=== PATIENT | female | born 1990 | race Caucasian/White ===

== ENCOUNTER 2024-12-31 08:00 | Outpatient (RCR) | payer MEDICAID, SELFPAY | END 2024-12-31 23:59 | LOC: BHIOP 08:00 | PROVIDERS: PCP Student in an Organized Health Care Education/Training Program; Referring Provider Internal Medicine; Visit Provider Internal Medicine | DX: F33.2 Major depressive disorder, recurrent severe without psychotic features (principal) | CPT/HCPCS: H2020 ==

== ENCOUNTER 2025-01-01 07:19 | Outpatient (RCR) | payer MEDICAID, SELFPAY ==
--- NOTE | 2025-01-03 08:28 | BH.PSY.EVA_ITS ---
Intake Vital Signs 12/25/24 10:32 01/03/25 08:28 Height 1.68 m 1.68 m Weight: 128.82 kg BMI 45.8 BP 155/107 H Blood Pressure Location Lt radial Position Sitting Respiration 16 Pulse 106 H Pulse Source Monitor Intake Visit Reasons: ADHD, MDD, HOWARD Allergies No Known Allergies Allergy (Verified 12/25/24 10:40) Medications ?Medication ?Instructions ?Recorded ?Confirmed ?Type sertraline 50 mg tablet 50 mg PO QDAY #30 tabs 12/2512/25/24 Rx PFSH () Medical History Eustachian tube disorder Thyroid disease Hormone deficiency Emotional problems Anemia Family History Other Anxiety Asthma Blood clot in vein Breast cancer Colon cancer Diabetes Hypertension Myocardial infarction Parkinson disease Psychiatric care Thyroid disorder Social History Smoking Status: Never smoker alcohol intake: never substance use type: does not use what type of physical activity do you participate in: none HPI () History of Present Illness History provided by: patient Chief complaint: Anxiety, meltdowns HPI: Annemarie is a 34 y/o F who presented to [facility] IOP program for further evaluation and treatment of ADHD, MDD, HOWARD. Okay so far Busy week, electric disconnected. Came in on , was on crisis. Frustrated, tired.Referred at the end of november after crisit call. My ADLs are not great. Struggling to work. Fired on neglet of, food service coordinator customer insight analyst, not set hours, likes waking up in AM, Hard time getting and starting tasks, work load was cut in half already d/t overhwlemed, really denial disability. Crying, meldowns, shutdowns, cries, sensory overload, fired from job Mood is described as []. []. Anhedonia: Does enjoy things but just doesn't get to do them because not acceptable or not enough energy Appetite: Good, maybe too good, likes sett things Sleep: Past few days waking up at 330am, before this week sleep is usually okay Energy: Varies depending what she has to do, sometimes very poor Concentration: I don't know, focused on trying to survive Guilt: Relying on sister, can't work, sister helpful financially but not as emotionally SI: Not lately, not for 1 month HI: No AH: No VH: No Lyndsey: Years ago got into rol playing online up to 26 hours straight, Anxiety: Pretty bad, finances, I guess i have some kind of social anxiety, kind of enjoy people and person facing jobs but going to the store makes her anxious Panic attacks: Used to get them a lot, spirals of anxiety end up in crying, major crying, before june used to call sister, started using crisi numbers, sometimes out of no where, particularly overwhelmed, OCD: Likes things on an even number, double checking door, bothers her but doesn't impact Eating d/o hx: Nothign restrictive, eating, not binging PTSD: No Dad left when 11 years old, didn't come back into her life, visitation was sparse then none existent, mom lost house, mom had to get a job, was very structured before that, homeschooled, then wasn't, did have anxiety when she always anxious, i don't really know before 2016 lived in [place], moved here in 2016, struggling with mood around that time, Current psychiatric medications: Zoloft 50 mg, recently started 12/25/2024 by her psychiatric np as she had stopped taking her medication previously. Was hard to keep up on taking medicines, off of the other 3 for a couple months, not taking consistently Zoloft already helping, hasn't taken synthroid in one month, last in august took it Side effect concerns: [] Past psychiatric treatment Hx: -Psychiatrist: Follows with [facility] psychiatry, for around 1 year, IOP virtually last year [facility], was helpful -Therapist: Mick cavazos [facility] -Psychiatric hospitalizations: None -Suicide attempts: [] -NSSI: [] -Medication trials: Fluoxetine, BuSpar, Wellbutrin Substance use Hx: -Alcohol: [] -Drugs: [] -Rehab: [] -Tobacco use: [] Family Hx: -Mental illness: [] -Suicide attempts or completions: [] -Substance Use: [] -General medical conditions: [] Psychosocial: -Born/raised: [] -Childhood: [] -Parents: [] -Siblings: [] -Current living situation and location: [] -Marital status: [] -Children: [] -If female, on control or plans to get ?: [] -Support system: [] -Highest level of education: [] -Employment hx/Income: [] -Spiritism affiliation: [] - hx: [] -Access to guns: [] -Legal problems: [] -Hx of abuse: [] Medical ROS: General: Denies fever HENT: Denies headache EYES: Denies acute changes in vision Resp: denies shortness of breath Cardiac: Denies chest pain GI: denies changes in bowel, denies nausea/vomiting : Denies changes in urination MSK: Denies weakness Neuro: Denies any numbness/tingling Heme: Denies any bleeding or bruising Skin: Denies rashes Psychiatric: As above Developmental History Developmental History: ANNEMARIE is the [ ORDER]. The pt was born and raised in [ ]. Education level completed [ ]. Pt describes his/her childhood as [ ]. Visit Details Comments: Spent a total of [ ] minutes on the date of the service which included [ ].
--- NOTE | 2025-01-03 08:28 | PCM.BH.PSYEV ---
Intake Vital Signs 12/25/24 10:32 01/03/25 08:28 01/03/25 09:43 Height 1.68 m 1.68 m 1.7 m Weight: 128.82 kg 124.738 kg BMI 45.8 BP 155/107 H 143/97 H Blood Pressure Location Lt radial Position Sitting Respiration 16 Pulse 106 H 83 Pulse Source Monitor Intake Visit Reasons: ADHD, MDD, HOWARD Allergies No Known Allergies Allergy (Verified 01/03/25 09:34) Medications ?Medication ?Instructions ?Recorded ?Confirmed ?Type sertraline 50 mg tablet 50 mg PO QDAY #30 tabs 12/25/24 01/03/25 Rx atomoxetine 40 mg capsule 40 mg PO DAILY 01/03/25 01/03/25 History Held on 01/03/25. Instructions: pt states she is going to start taking it again soon levothyroxine 137 mcg tablet 137 mcg PO DAILY 01/03/25 01/03/25 History (Euthyrox) Held on 01/03/25. Instructions: pt states she is going to start taking again soon [facility] () Medical History Eustachian tube disorder Thyroid disease Hormone deficiency Emotional problems Anemia Family History Other Anxiety Asthma Blood clot in vein Breast cancer Colon cancer Diabetes Hypertension Myocardial infarction Parkinson disease Psychiatric care Thyroid disorder Social History Smoking Status: Never smoker alcohol intake: never substance use type: does not use what type of physical activity do you participate in: none HPI () History of Present Illness History provided by: patient Chief complaint: Anxiety, meltdowns HPI: Annemarie is a 34 y/o F who presented to [facility] IOP program for further evaluation and treatment of ADHD, MDD, HOWARD. She reports that she has had a a lot of stress this week and that she is frustrated and tired, she reports that her electric was disconnected and she has been dealing with that and has been not doing well with her ADLs and not taking care of herself. This week she was fired for neglect of duty and reports it was a very accommodating job with flexible daytime hours but she still was not able to do this due to difficulty with energy, concentration, anxiety, mood. Patient with crying and meltdowns. She reports she has a hard time starting tasks and staying focused on tasks when they do occur. Today patient feels she is doing slightly better but still struggling. She is also just denied disability Anhedonia: Does still think she enjoys but with the heat and with her low energy she often is unable to do these things Appetite: Good appetite Sleep: Had been sleeping okay but has been waking up at 3:30 AM over the past several days since making it harder during the day Energy: Often times very poor Concentration: Sounds as though there is poor concentration, she reports she just focuses on trying to survive so it is difficult to assess Guilt: She feels guilt that she is relying on her sister financially because she lost her job and she cannot work with all of her current problems SI: Last had thoughts of suicide 1 month ago HI: No AH: No VH: No Lyndsey: Denies any symptoms consistent with manic episode Anxiety: She reports that she is anxious over finances and also gets anxious going places with other people, she enjoys people and work that involves interacting with people but just going to the store or an area with an unstructured interaction gives her significant anxiety Panic attacks: Reports she will get an spirals of anxiety and ended up crying and hyperventilating and sometimes come out of nowhere but other times happen when she is feeling particularly overwhelmed, she is to get those very frequently, somewhat less so now OCD: Likes things on an even number and will double check the door and notes that this bothers her but doesn't impact her functioning Eating d/o hx: Denies any history of restricting, sometimes will overeat PTSD: No Current psychiatric medications: Zoloft 50 mg, recently started 12/25/2024 by her clinical psychology professor as she had stopped taking her medication previously. Was hard to keep up on taking medicines and was off of all 3 for several months and even when she was on them she was not taking them consistently. Does note Zoloft already seems to be helping Side effect concerns: No Past psychiatric treatment Hx: -Psychiatrist: Follows with [facility] psychiatry. IOP virtually last year [facility], was helpful, previously 1 session w/ one other psychiatric provider before [place] but felt dismissed so she did not come back -Therapist: Mick at [facility], first therapy session yesterday, was Yuni before that but Yuni has a role change so she is unable to follow with her but did like Mick -Psychiatric hospitalizations: None -Suicide attempts: In November [place] paused [place] the [place] but does not necessarily think she would have actually stayed there for train was coming, no other attempts -NSSI: Sometimes with severe panic attacks would hit her head or bite herself -Medication trials: Fluoxetine, BuSpar, Wellbutrin, atomoxetine, adderall Substance use Hx: -Alcohol: No -Drugs: no -Rehab: no -Tobacco use: No Family Hx: -Mental illness: Depression and anxiety run on mom's side with her aunt and also her sister -Suicide attempts or completions: Sister might have attempted suicide but she is unsure -Substance Use: No -General medical conditions: Hypothyoridism on mom's side, HTN, heart issues, DMII, mother from colon cancer after 12-year ibrahim, grandmother breast cancer Psychosocial: -Born/raised: Born and raised in [place], moved to [place] in 11th grade, mom was born and raised there so after her sister got they moved but came back here in 2016 when sister got for the second time. She has a niece that 16 started driving and nephew who is 8 years old -Childhood: Before 11 years old she said she thinks it was fairly normal although there was a lot of fighting between her parents, her dad left when she was 11 years old and did not come back into her life. Visitation was sparse and then nonexistent, mom lost her house and she had to get a job (was previously on mom) and patient had been homeschooled but then had to go to school so she had significant operating of her life -Parents: Dad not around, mom from cancer 2-3 years ago, battled colon cancer for 12 years and she was her weigher operator until she passed -Siblings: One sister who lives in [place], works at [employer] in the lab -Current living situation and location: Lives in house that is since been turned into apartment, she lives on the middle level -Marital status: Has a boyfriend of 7 years who lives in [place], has been steady but slow. 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 Before that was unemployed as she was her mom's weigher operator -Lutheran affiliation: Scientologist, also alittle witsylvestery and has tear cards and crystals - hx: No -Access to guns: No -Legal problems: No -Hx of abuse: No Medical ROS: General: Denies fever HENT: Denies headache EYES: Denies acute changes in vision Resp: SOB related to her anxiety, had on Tuesday but resolved now, Cardiac: Denies chest pain GI: denies changes in bowel, denies nausea/vomiting : Denies changes in urination MSK: Denies weakness Neuro: Denies any numbness/tingling Heme: Denies any bleeding or bruising Skin: Denies rashes Psychiatric: As above Developmental History Developmental History: Exam () Mental Status Exam- Psych () Appearance casually dressed and no apparent distress Attitude cooperative and other (Slow to engage but progressively more so throughout the interview) Activity/Motor Behavior fidgeting Speech regular rate and regular volume Mood other (Little bit anhedonic) Affect restricted Thought Process linear and logical Thought Content no delusions and no hallucinations Suicidal Ideation none Homicidal Ideation none Attention intact Concentration intact Sensorium/Orientation awake and alert Memory/Cognition intact Insight fair Judgement fair Assessment & Plan () Assessment & Plan (1) Major depressive disorder: Problem Details: Crying spells, poor concentration, easily overwhelmed frequently with low energy was experiencing fleeting SI but none today Qualifiers: Major depression recurrence: recurrent Active/Remission status: currently active Major depression episode severity: moderate Qualified Code(s): F33.1 - Major depressive disorder, recurrent, moderate Plan: Patient is already beginning to feel better on Zoloft, started on 50 mg a couple weeks ago and reports she is attempting to be compliant with this, given she is already finding this helpful we will continue at current dose and assess for further adjustment needs moving forward (2) ADHD: Problem Details: By history Qualifiers: Attention deficit-hyperactivity disorder type: predominantly inattentive Qualified Code(s): F90.0 - Attention-deficit hyperactivity disorder, predominantly inattentive type Plan: Has not been taking her atomoxetine, we will work on patient's depression and anxiety, will need to assess the improvement in her concentration and if she needs further management of ADHD (3) Hypothyroidism: Plan: Patient reports being noncompliant with her Synthroid, suspect this is contributing to her mood and depression, advise she restart this as she still has medications and follow-up with her PCP, reports she has an appointment later this month. Plan The patient will begin IOP in Behavioral Health at [facility]. The program's structure, support, education, and therapy aim to prevent deterioration of symptoms and avoid the need for PHP or inpatient hospitalization. I have a reasonable expectation that the patient will make practical improvements in their presenting symptoms and will be discharged to a lower level of care. Medications: On Hold atomoxetine Hold Comment: pt states she is going to start taking it again soon 40 mg PO DAILY levothyroxine Hold Comment: pt states she is going to start taking again soon 137 mcg PO DAILY Visit Details Comments: Spent a total of [ ] minutes on the date of the service which included [ ]. Charges/Coding Behavior Health Behavior Health Psychiatric Evaluation: 76362 Psych Diag Exam w/ Medical Services
--- NOTE | 2025-01-03 09:14 | BH.PSY.EVA_ITS ---
Initial Treatment Plan Patient Information Visit Information: ADMISSION DATE: EXPECTED LOS: 4-6 weeks
--- NOTE | 2025-01-03 09:14 | BH.DR.ITP ---
Initial Treatment Plan Patient Information Visit Information: ADMISSION DATE: EXPECTED LOS: 6-8 weeks Diagnoses:: MDD Problems/Symptoms Problem #1:: MDD Symptom:: Crying spells, poor concentration, easily overwhelmed frequently with low energy was experiencing fleeting SI but none today
--- NOTE | 2025-01-03 09:15 | BH.NA ---
Physical Data Vital Signs Pulse Rate: 83 Blood Pressure: 143/97 Height/Weight Height: 1.7 m Weight:: 124.738 kg Weight in Pounds: 275.0 lbs Current Medication Compliance Medication Compliance Do you take your medication as prescribed?: Yes Nutritional History Appetite Nutritional Instructions: Describe your appetite:: Good Additional nutritional information:: Client states her weight and appetite are stable. Client states in the past year she has probably gained about 15lbs. Functional Assessment Sleep Pattern Describe any problems with sleeping: Client sleeps 6-8 hours per night. Sensory/Communication Assess Vision Problems Do you have any vision problems?: Glasses Communication Problems Do you have difficulty understanding what people are saying?: No Medical Problems/History Hematologic Conditions Hematologic: Anemia Metabolic Conditions Metabolic: Hypothyroidism and Other (See comments) Family History Family History Other Anxiety Asthma Blood clot in vein Breast cancer Colon cancer Diabetes Hypertension Myocardial infarction Parkinson disease Psychiatric care Thyroid disorder Additional History Additional comments:: ADHD Surgical History Surgical History Have you had any surgeries? If so, list type and date:: Yes (ear tubes as a child) Substance Abuse Substance Abuse Please describe substance abuse in the last 30 days:: Client denies alcohol, tobacco or substance use. Client occasionally has caffeine, either pop or coffee but usually not daily. Mental Status Summary Mental Status Significant Findings/Observations on Appearance and Mood:: Client is alert and oriented x 4. Client is casually groomed. Client is cooperative with assessment. Client makes good eye contact. Client's voice has normal rate and volume. Client is tearful at times during assessment. Client makes logical associations and has normal processing. Client denies delusions/hallucinations. Client denies SI at this time. Suicide Assessment Suicidal Ideation Are you currently or have you been suicidal in the past?: Yes Suicidal Intentional Rating Scale (SIRS): Suicidal thoughts (past) Physician Notification Past Psychiatric History MH Treatment Hx Past Psychiatric Medications:: Buspar, Wellbutrin, Adderall (possibly made anxiety worse), Prozac Age of first mental health symptoms: Client was diagnosed with ADHD as a child but states her mom pulled her out of school and homeschooled with online school to try to help her. Client states she started taking medication for ADHD around age 29. Describe (age, circumstance, etc) any past hospitalizations: None. Current providers for mental health treatment (counselor, psychiatrist, pillowcase cleaner, etc.): Mick for counseling at [facility], Quyen Steele [employer] at [facility] Fall Risk Assessment Age Age: Less than 60 Mental Status Mental Status: Willing & able to ask for assistance when needed Physical Status Physical Status: No problems Impairments Impairments: None Elimination Elimination: Continent AND independent Gait or Balance Gait or Balance: Walks independently Hx of Falls History of falls in the past 6 months: No known history Medications/Substances Psychotropics:: Antidepressants Medications/substances used within the past 24 hours or ordered to administer: 1-2 of the medications/substances listed above Total Score Total Points:: 1 RN Summary of Impressions Impressions Recommendations Impressions: Psychiatric Issues: Major depressive disorder, recurrent severe without psychosis. Generalized Anxiety Disorder. ADHD. Level of Care How do the client's current symptoms and functional deficits support need for this level of care?: Client was referred to IOP by her outpatient psychiatrist due to mental health impacting her ability to function. 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 Client states her mother was her primary support, emotionally and financially, and states she has been struggling to function and take care of herself since her mother . Client states she was recently fired from a job at the end of December and states this is the first time she has ever been fired. Client reports a decrease in abilities to carry out ADLS, decreased energy, isolating herself and intense emotional episodes of crying, rocking back and forth and shaking. Client is tearful when she talks about how hard it has been to take care of herself since her mother's passing. Client denies SI at this time. IOP will promote gains and prevent further decompensation while providing social support and skills training.
[2025-01-03 09:43] VITALS: BP 143/97; PULSE 83
--- NOTE | 2025-01-03 10:10 | BH.SGPN.GN ---
Behaviors/Verbalizations/Mental Status: []Eye contact is good. Motor activity is appropriate. Appearance is casual. Speech is Appropriate. Mood is anxious. Affect is congruent. Thoughts are linear and logical. No evidence of psychosis. Client Response/Progress/Benefit: [] Pt receptive to session AEB listening attentively to others and taking notes. Pt attentive and contributed throughout psychoeducation on the cognitive triangle and maintenance cycles. Pt engaged during group discussion reviewing the impact of daily activities and behaviors in either reinforcing unhealthy maintenance cycles and depression or assisting in reducing symptoms (?down? vs ?up? activities). Pt participated during interactive discussion in which pt identified their own common up activities (personal hygiene, body movement, be social) and down activities (isolating, avoiding self-care, and being on phone too long). Appeared to benefit from increased awareness of current behaviors and impact these have on mental health. Will continue IOP to prevent decompensation, improve daily functioning, and improve healthy coping.
--- NOTE | 2025-01-03 10:10 | BH.SGPN.GN ---
Behaviors/Verbalizations/Mental Status: [] Eye contact is good. Motor activity is appropriate. Appearance is casual. Speech is Appropriate. Mood is dysthymic. Affect is congruent. Thoughts are linear and logical. No evidence of psychosis. Client Response/Progress/Benefit: [] Pt receptive to session AEB listening attentively to others and taking notes. Pt attentive and contributed throughout psychoeducation on the cognitive triangle and maintenance cycles. Pt engaged during group discussion reviewing the impact of daily activities and behaviors in either reinforcing unhealthy maintenance cycles and depression or assisting in reducing symptoms (?down? vs ?up? activities). Pt participated during interactive discussion in which pts identified their own common up activities (shower, dancing, body movement, pets) and down activities (isolation, avoidance, sad music, not taking meds).Identified an up activities she can complete today which was work outside on plants. Appeared to benefit from increased awareness of current behaviors and impact these have on mental health. Will continue IOP to prevent decompensation, gain healthy coping skills.
--- NOTE | 2025-01-03 10:34 | BH.MTP_ITS ---
Master Treatment Plan Patient Information Program Physician:: Dr. Enedina Judge Primary Therapist:: Ariana LUNA Psychiatric Diagnoses Psychiatric Diagnoses:: F33.1 - Major depressive disorder, recurrent, moderate; F90.0 - Attention-deficit hyperactivity disorder, predominantly inattentive type Diagnosis Code(s):: F 33.1 Estimated LOS Estimated LOS (in weeks):: 6 Problem/Goal #1 Problem/Goal #1 Stated Goal:: Pt will decrease depressive symptoms, hopelessness, crying spells, and avoidance. Description of Barriers: Pt is currently not working and is working on getting disability benefits, but she was recently denied. Pt has been struggling with doing her ADLs and she has a history of non-responsiveness to medications. Functional Impact: Pt is a 34-year-old female with a history of MDD, ADHD, and HOWARD. Pt was referred to IOP by her outpatient associate school psychologist due to worsening mental health symptoms impacting her daily functioning. Pt reports meltdowns including crying uncontrollably, shaking, and brain fog that has hindered pt's ability to work and has led to pt getting fired from jobs. Pt endorses erratic motivation, increased appetite, isolation, avoidance, and feelings of being worthless. Pt is not currently benefitting from weekly counseling alone. Goal Relevant Strengths/Supports: Pt is established with outpatient counseling, psychiatry, and case management services. Pt is resourceful and resilient. Pt successfully completed an online IOP. Objectives Objective #1: Stated Objective: Pt will increase structure, routine, and sense of nell vation by accomplishing 2-3 small self-care goals a week. Interventions: Through group and individual sessions, pt will learn how to set small SMART goals to promote self-care and stress management. Therapist will teach pt about behavioral activation and the cognitive triangle. Discharge Criteria: Pt will have accomplished this goal when can report accomplishing at least two small goals a week Target Date: 02/11/25 Review Date: 01/21/25 Status: open Objective #2: Stated Objective: Pt will learn and utilize 2-3 healthy coping strategies to better manage depressive symptoms by a decrease of DMS-5 symptoms for depression. Interventions: Through group and individual sessions, therapist will help pt identify triggers and warning signs of depression and guilt including emotional, physical, and behavioral changes. Therapist will teach pt various coping skills to manage symptoms and give pt tangible resources to use to regulate emotions. Therapist will use cognitive restructuring techniques and help pt gain awareness of negative thoughts that reinforce guilt and depression. Therapist will provide psychoeducation on maintenance cycles and help pt learn ways to break unhealthy maintenance cycles. Therapist will help pt incorporate behavioral activation and assist pt in setting SMART goals. Discharge Criteria: Pt will have met this goal when can report learning and using at least 2 coping skills to manage depressive symptoms and reduce isolation. Additionally, pt will have met this goal when pt's DSM-5 scores for depression decrease. Target Date: 02/11/25 Review Date: 01/21/25 Status: open Problem/Goal #2 Problem/Goal #2 Stated Goal:: Pt will decrease anxiety while increasing distress tolerance skills. Description of Barriers: Pt is currently not working and is working on getting disability benefits, but she was recently denied. Pt has been struggling with doing her ADLs and she has a history of non-responsiveness to medications. Functional Impact: Pt is a 34-year-old female with a history of MDD, ADHD, and HOWARD. Pt was referred to IOP by her outpatient associate school psychologist due to worsening mental health symptoms impacting her daily functioning. Pt reports meltdowns including crying uncontrollably, shaking, and brain fog that has hindered pt's ability to work and has led to pt getting fired from jobs. Pt endorses erratic motivation, increased appetite, isolation, avoidance, and feelings of being worthless. Pt is not currently benefitting from weekly counseling alone. Goal Relevant Strengths/Supports: Pt is established with outpatient counseling, psychiatry, and case management services. Pt is resourceful and resilient. Pt successfully completed an online IOP. Objectives Objective #1: Stated Objective: Pt will increase ability to manage stressors and anxiety by gaining 2-3 distress tolerance skills. Interventions: Through group and individual therapy, pt will learn various coping skills to help manage stress and anxiety. Therapist will utilize DBT distress tolerance skills to increase awareness and give pt tools to more effectively manage anxiety. Therapist will provide psychoeducation on emotional regulation and help pt identify unhealthy coping skills she wants to change. Discharge Criteria: Pt will have accomplished this goal when can report improved ability to manage stressors and identify at least 2 distress tolerance skills. Target Date: 02/11/25 Review Date: 01/21/25 Status: open Objective #2: Stated Objective: Pt will identify 2-3 anxiety triggers and 2 coping skills to use when feeling anxious to manage anxiety as shown by reducing DSM-5 scores for anxiety Interventions: Therapist will provide education on anxiety, avoidance behaviors, and maintenance cycles. Therapist will help pt explore personal symptoms and warning signs of anxiety and irritability. Therapist will teach pt coping skills to improve emotional regulation, mindfulness, and distress tolerance to help pt cope with anxiety in the moment. Discharge Criteria: Pt will have accomplished this goal when he can identify at least 2 triggers and report using 2 coping skills to manage anxiety and irritability. Additionally, pt will have accomplished this goal AEB reduction of DSM-5 scores for anxiety. Discharge Criteria: Pt will discharge when pt can report at least 2 skills to use when feeling irritable/anxious and report a reduction of DSM-5 scores for anxiety. Target Date: 02/11/25 Review Date: 01/21/25 Status: open
--- NOTE | 2025-01-03 10:34 | BH.MDN ---
Multi-Disciplinary Note Note 45-min Individual: Time Started:: 09:30 Date: 01/03/25 Purpose of session/treatment goals addressed:: To gather information on pt's current stressors, symptoms, triggers, history, and tx goals. Another goal was to build rapport and provide emotional support. Eye Contact:: Fair Motor Activity:: Restless Appearance:: Disheveled Speech:: Appropriate Mood:: Anxious and Depressed Affect:: Congruent (tearful at times) Thoughts:: Racing and No evidence of hallucinations/delusions noted Staff Interventions:: rapport building, strengths perspective, treatment planning, goal setting and other (psychosocial information) Client Response:: Pt responded well to session, open to meeting with therapist. Pt reports feeling overwhelmed by all the stressors going on in her life recently, but pt was able to identify the ways she is being resilient. Pt shared she has outpatient counseling, she has a preliminary school psychologist, and she has a patient case coordinator. Pt is currently facing financial stress, and she has reached out to local agencies to help her which is another strength. Pt reports her biggest goal for IOP is to get back to functioning at her baseline. Pt stated she wants to have a clean kitchen again, be able to cook again, and have a consistent hygiene routine. Pt shared she cannot see a lot of the floor in her kitchen and she cannot remember the last time she showered. Pt reports having crying spells, lack of motivation, lack of energy, and difficulty concentrating on tasks. Pt has her sister for support, but she said they are kind of close. Both of pt's parents are , pt's mom from cancer and this was a significant loss for pt. Pt was not close with her father, but she shared prior to him passing away, they were trying to rebuild their relationship. Pt was receptive to goal setting with therapist and shared she would do well with listening to something while she tried to clean. Pt and therapist will meet weekly. Risks/Concerns:: Pt denies any suicidal ideations, plan, or intent. Pt denies any thoughts of . Progress Toward Goals/Plan:: Pt's first week of IOP tx. Pt reports she did a virtual IOP and found it helpful, so pt is looking forward to this IOP. Pt stated her biggest stressors right now are not having an income, not being able to work, and getting denied for disability. Pt feels constantly overwhelmed and she has not been taking care of her ADLs. Pt receptive to working on a goal for the week which is to clean the entrance floor of her kitchen. Pt will continue IOP tx to prevent decompensation, improve daily functioning, and increase self-care. Time Stopped:: 10:10
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
--- NOTE | 2025-01-07 09:05 | BH.SGPN.GN ---
Behaviors/Verbalizations/Mental Status: [] Eye contact is good. Motor activity is appropriate. Appearance is casual. Speech is Appropriate. Mood is anxious. Affect is congruent. Thoughts are linear and logical. No evidence of psychosis. Reviewed daily check in sheet and no reports of suicidal ideations or intent. Client Response/Progress/Benefit: [] Pt participated at times during the group discussion. Attentive. Pt stated ? my anxiety is high today?. Shared overall ? inability to function? recently due to mental health and being overwhelmed with clutter in her apartment. Set a goal last week to begin cleaning a section of the apartment which she accomplished. Several stressors including finances, being unemployed, and responsibilities. Limited progress noted. Benefited from group support, encouragement, and feedback. Will continue in IOP to prevent decompensation, increase healthy coping, and improve functioning. Narrative Note: []
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
--- NOTE | 2025-01-07 11:15 | BH.SGPN.GN ---
Behaviors/Verbalizations/Mental Status: [] Eye contact is good. Motor activity is appropriate. Appearance is casual. Speech is Appropriate. Mood is euthymic. Affect is full. Thoughts are linear and logical. No evidence of psychosis. Client Response/Progress/Benefit: [] Pt was an engaged participant AEB listening attentively to others and providing input throughout group. Pt along with group members, identified strategies to manage inappropriate guilt. Identified a personal example of inappropriate guilt as ?not being able to work and take care of myself? Pt wants to work on combatting inappropriate guilt by trying to help myself psychologically and financially while acknowledging my limits.? Pt seemed to benefit from learning about strategies to manage appropriate and inappropriate guilt. Pt to continue IOP tx to prevent decompensation, gain healthy coping skills, and increase healthy thought patterns.
--- NOTE | 2025-01-08 09:00 | BH.SGPN.GN ---
Behaviors/Verbalizations/Mental Status: [] Client alert and oriented, casual appearance. Eye contact good. Motor activity appropriate. Speech within normal limits. Affect congruent, mood anxious, depressed. Thoughts linear, logical, no signs of hallucinations or delusions. Reviewed client's symptom tracker, no risk for suicidal ideation, plan, or intent. Client Response/Progress/Benefit: [] Client responded well to session AEB listening to others and sharing thoughts/feelings. Client reported mental positive was using opposite action to take out the trash this morning. Reports feeling accomplished as a result. Additional win noted as spending time caring for her cactus last night. Stressor identified as finances and reminding herself it is okay to need help. Appeared to benefit from support from peers. Will continue IOP tx to reinforce healthy coping skills, challenge distortions, and prevent decompensation. Narrative Note: []
--- NOTE | 2025-01-08 10:05 | BH.SGPN.GN ---
Behaviors/Verbalizations/Mental Status: []Pt alert and oriented, casually dressed and groomed. Eye contact fair.. Motor activity appropriate. Speech within normal limits. Affect constricted, mood dysthymic. Thoughts linear, logical, no signs of hallucinations or delusions. Client Response/Progress/Benefit: [] Pt took notes and contributed to group discussions. Attentive during psychoeducation on growth mindset. Interactive group discussion on fixed mindset in which group verbalized their current fixed mindsets and how they affect their mental health. Pt shared common fixed mindset thoughts they have. Pt able to connect negative impact fixed thoughts have on functioning. Pt benefited from increased awareness of growth mindset and fixed thoughts and how fixed thoughts impact their mental health. Will continue IOP tx to improve daily functioning, increase use of skills, and prevent decompensation.
--- NOTE | 2025-01-08 11:10 | BH.SGPN.GN ---
Behaviors/Verbalizations/Mental Status: []Pt alert and oriented, casually dressed and groomed. Eye contact good. Motor activity appropriate. Speech within normal limits. Affect congruent, mood anxious and engaged. Thoughts linear, logical, no signs of hallucinations or delusions. Client Response/Progress/Benefit: [] Pt was an active participant during activity and discussion. Pt did well to remain attentive and participate as group worked on identifying characteristics and benefits of adopting a growth mindset. Worked with fellow participants in reframing the example fixed thoughts into growth mindset thoughts. Pt worked on changing own fixed thought. Pt?s reframed thought was ?I?m not lazy because lazy people don?t try and I?m trying.? Pt attentive during discussion about different strategies that can help with fostering a growth mindset. Pt appeared to benefit from challenging own thoughts and engaging in the activity. Pt will continue IOP tx to increase distress tolerance, improve self-care, and gain healthy coping skills. Narrative Note: []
--- NOTE | 2025-01-10 09:00 | BH.SGPN.GN ---
Behaviors/Verbalizations/Mental Status: [] Eye contact is good. Motor activity is appropriate. Appearance is casual. Speech is Appropriate. Mood is euthymic. Affect is full. Thoughts are linear and logical. No evidence of psychosis. Reviewed daily check in sheet and no reports of suicidal ideations or intent Client Response/Progress/Benefit: [] Narrative Note: []
--- NOTE | 2025-01-10 09:53 | BH.MDN ---
Multi-Disciplinary Note Note 30-min Individual: Time Started:: 09:20 Date: 01/10/25 Purpose of session/treatment goals addressed:: To work on goal #1 of pt's tx plan and review homework. Eye Contact:: Good Motor Activity:: Appropriate Appearance:: Disheveled Speech:: Appropriate Mood:: Euthymic and Anxious Affect:: Congruent Thoughts:: Linear, Logical and No evidence of hallucinations/delusions noted Staff Interventions:: thought challenging, CBT techniques, strengths perspective and goal setting Client Response:: Pt responded well to session, open to meeting with therapist. Pt reports feeling stressed still, but slightly less. Pt shared the group topics of guilt and growth mindset were interesting and she had to process them with her outpatient therapist yesterday. Pt stated she has been struggling with inappropriate guilt regarding needing financial help from her sister after losing her job. Pt stated she was able to challenge this and remind herself that there are a lot of good things she is doing to support herself. One of those things is working on cleaning her kitchen. Pt accomplished her goal of cleaning for at least 15 minutes and pt shared she cleaned for 25 minutes. Pt stated it feels good to see some of my floor and this also motivated pt to cook because there was actually space. Pt receptive to working on this goal again, and her new task is to clean the table off and the rest of the floor. Pt shared she is benefitting from learning more about behavioral activation. Pt stated she is not currently struggling with distorted thought patterns, but she will be communicate if she begins to with therapist. Risks/Concerns:: Pt denies any suicidal ideations, plan, or intent. Pt denies any thoughts of . Progress Toward Goals/Plan:: Pt is responding well to IOP tx so far and she reports benefitting from the group sessions. Pt accomplished her goal of cleaning for at least 15 minutes over the past week and she feels accomplished. Pt receptive to setting another cleaning goal and to begin working on being more consistent with taking her medications. Pt shared she still feels overwhelmed by life stressors, but she is working on focusing on things in her control. Pt will continue IOP tx to prevent decompensation, improve daily functioning, and improve mood stability. Time Stopped:: 09:38
--- NOTE | 2025-01-10 10:10 | BH.SGPN.GN ---
Behaviors/Verbalizations/Mental Status: [] Eye contact is good. Motor activity is appropriate. Appearance is casual. Speech is Appropriate. Mood is dysthymic. Affect is congruent. Thoughts are linear and logical. No evidence of psychosis. Client Response/Progress/Benefit: [] Client engaged participant at times during group session as evidenced by contributions during group discussions, appearing to listen to others, and taking notes. Client engaged in discussion about barriers that keep people from having difficult confrontations. Group identified potential reasons individuals avoid difficult conversations which included; feeling uncomfortable, reaction of others, fear, avoid conflict. Group also identified benefits to having crucial conversations. Pt identified things they do that impact their communication shutdown. Client seemed to benefit from increased awareness and education about importance of having difficult conversations and recognizing the impact of avoiding such conversations. Client to continue IOP to prevent decompensation, increase healthy coping, and improve functioing. Narrative Note: []
--- NOTE | 2025-01-10 11:10 | BH.SGPN.GN ---
Behaviors/Verbalizations/Mental Status: []Pt alert and oriented, casually dressed and groomed. Eye contact good. Motor activity appropriate. Speech within normal limits. Affect congruent, mood euthymic. Thoughts linear, logical, no signs of hallucinations or delusions. Client Response/Progress/Benefit: [] Pt was an active participant, engaged in activities and discussion. Pt able to identify ways they negatively contribute to crucial conversations and pt was engaged during psychoeducation of the different ways to build interpersonal effectiveness skills. Pt and peers practiced mirroring and active listening in partners. Group reviewed [employer] and used the handout to help map out how they would like a crucial conversation in their life to go. Pt identified talking to her sister about what happened back in June. Pt appeared to benefit from learning and practicing interpersonal effectiveness skills. Pt will continue IOP tx to reduce avoidance behaviors, increase distress tolerance, and improve self-care. ? Narrative Note: []
--- NOTE | 2025-01-14 09:00 | BH.SGPN.GN ---
Behaviors/Verbalizations/Mental Status: [] Pt alert and oriented, neatly dressed and groomed- reported showering. Eye contact good. Motor activity appropriate. Speech within normal limits. Affect congruent, mood euthymic. Thoughts linear, logical, no signs of hallucinations or delusions. Reviewed pt?s symptom tracker, no risk for suicidal ideation, plan, or intent 01/14/25. Client Response/Progress/Benefit: []Pt was an active participant in group discussions. Attentive. Able to identify mental health wins including getting back on track with taking her medications and showering. Pt's stressor today is ?being hyper fixated on writing and I?m worried I?ll procrastinate.? The group offered pt encouragement and emotional support which pt reported was helpful. Pt is feeling content this morning. Pt receptive to feedback from peers. Progress noted. Benefited from group support, encouragement, and feedback. Will continue IOP tx to increase distress tolerance skills, improve self-care practices, and improve daily functioning. ?? Narrative Note: []
--- NOTE | 2025-01-14 10:00 | BH.SGPN.GN ---
Behaviors/Verbalizations/Mental Status: [] Client alert and oriented, casually dressed and groomed. Eye contact good. Motor activity appropriate. Speech within normal limits. Mood is depressed. Affect is congruent. Thoughts linear, logical, no signs of hallucinations or delusions. Client Response/Progress/Benefit: [] Pt responded well to session AEB sharing and listening attentively to others. Group provided examples of types of support (professional, pets, hobbies, community, spouse, joseph, etc) as well as benefits of having social support, including: validation, get perspective, and accountability. Pt also participated in group discussion regarding the barriers to accessing support identifying examples to include: negative thinking, lack of communication, and lack of trust. Pt participated in experiential activity illustrating the impact communication, boundaries, and patience play in creating healthy support systems. Pt appeared to benefit from increased knowledge of the benefits of social support and greater self-awareness. Pt to continue IOP to prevent decompensation, increase healthy coping, and improve functioning Narrative Note: []
--- NOTE | 2025-01-14 11:05 | BH.SGPN.GN ---
Behaviors/Verbalizations/Mental Status: []Client alert and oriented, casually dressed and groomed. Eye contact good. Motor activity appropriate. Speech within normal limits. Affect congruent, mood euthymic. Thoughts linear, logical, no signs of hallucinations or delusions. Client Response/Progress/Benefit: [] Pt participated throughout AEB contributing to discussion, providing examples, and taking notes. Pt provided input during discussion on the types of support our supports can provide. Pt able to identify current support system and barriers that get in the way of using supports. Pt reported after identifying what type of supports pt receives, pt gained awareness that pt could benefit from more tangible support by reaching out to her sister for help with finances. Pt seemed to benefit from identifying the type of support pt needs to work on improving. Pt recommended to continue IOP tx to promote increase self-care, improve communication, and prevent decompensation. Narrative Note: []
--- NOTE | 2025-01-15 09:02 | BH.SGPN.GN ---
Behaviors/Verbalizations/Mental Status: [] Client alert and oriented, casual appearance. Eye contact good. Motor activity appropriate. Speech within normal limits. Affect congruent, mood euthymic. Thoughts linear, logical, no signs of hallucinations or delusions. Reviewed client's symptom tracker, no risk for suicidal ideation, plan, or intent. Client Response/Progress/Benefit: [] Client responded well to session AEB listening to others and sharing thoughts/feelings. Client reported mental positive as talking with her sister last night which felt good to connect with her about normal topics. Client stated additional mental positive as starting to get better with managing her hyper fixation on certain activities. Client stated she is able to take breaks which in the past is something that she struggled with doing. Client noted current stressor as her finances. Appeared to benefit from support from peers. Will continue IOP tx to build emotional regulation skills, challenge negative thoughts, and prevent decompensation. Narrative Note: []
--- NOTE | 2025-01-15 10:10 | BH.SGPN.GN ---
Behaviors/Verbalizations/Mental Status: []Pt alert and oriented, casually dressed and groomed. Eye contact good. Motor activity appropriate. Speech within normal limits. Mood is anxious. Affect is congruent. Thoughts linear, logical, no signs of hallucinations or delusions. Client Response/Progress/Benefit: [] Pt was an active?participant in group discussions and experiential activity. Worked with peers to identify benefits of healthy relationships which included; support, shared experiences, laughter, understanding, and perspective challenge. Group identified factors that lead to unhealthy relationships which included; not being a ?good space mentally,? trauma-bonding, poor communication, and manipulation/toxic behaviors. Pt feels struggles with shutting down and feeling like a burden which then impacts relationships at times. Benefited from increased insight and awareness of benefits of healthy relationships and factors that contribute to unhealthy relationships. Will continue IOP to prevent decompensation, improve daily functioning, and gain healthy coping skills. ? Narrative Note: []
--- NOTE | 2025-01-15 11:00 | BH.SGPN.GN ---
Behaviors/Verbalizations/Mental Status: [] Pt alert and oriented, casually dressed and groomed. Eye contact good. Motor activity appropriate. Speech within normal limits. Mood anxious. Affect congruent. Thoughts linear, logical, no signs of hallucinations or delusions. Client Response/Progress/Benefit: [] Pt responded well to session, engaged and taking notes throughout. Worked with group to connect components of the experiential activity with characteristics of healthy and unhealthy relationships. Attentive during psychoeducation about characteristics of healthy, unhealthy, and abusive relationships. Pt choose not to share her strategies for improve current relationships. Appeared to benefit from identifying current healthy relationship attributes. Pt to continue IOP tx to prevent decompensation, increase healthy coping, improve functioning, and stabilize mood. Narrative Note: []
--- NOTE | 2025-01-18 09:05 | BH.SGPN.GN ---
Behaviors/Verbalizations/Mental Status: [] Eye contact is good. Motor activity is appropriate. Appearance is casual. Speech is Appropriate. Mood is depressed. Affect is congruent. Thoughts are linear and logical. No evidence of psychosis. Reviewed daily check in sheet and no reports of suicidal ideations or intent. Client Response/Progress/Benefit: [] Pt participated when prompted. Attentive. Daily symptom tracker notes limited distress. Able to identify mental health wins and healthy habits. Able to identify several accomplishments. Remains engaged in writing however admits that she is hyper fixated at times. Discussed with the group the use of AI to help with mental health struggles. Progress noted. Benefited from group support, encouragement, and feedback. Will continue in IOP to prevent decompensation, increase healthy coping, and improve functioning. Narrative Note: []
--- NOTE | 2025-01-18 10:15 | BH.SGPN.GN ---
Behaviors/Verbalizations/Mental Status: []Pt alert and oriented, casually dressed and groomed. Eye contact good. Motor activity appropriate. Speech within normal limits. Affect congruent, mood euthymic. Thoughts linear, logical, no signs of hallucinations or delusions. Client Response/Progress/Benefit: [] Pt participated during small group discussions. Attentive during psychoeducation about defense mechanisms. Showed engagement during small group discussions and helped group identify which defense mechanisms were maladaptive, adaptive, or ?somewhere in the mora.? Pt worked with small group on identifying how each defense mechanism can impact mental health and gave examples. Pt stated she has gained awareness of her use of sublimation, humor, self-discipline, and anticipation. Pt reported benefits from identifying examples of different defense mechanisms and normalizing why they are used. Seemed to benefit from gaining awareness about the different defense mechanisms. Pt to continue IOP tx to promote use of healthy coping skills, increase self-care practices, and improve distress tolerance skills. ? Narrative Note: []
--- NOTE | 2025-01-18 14:31 | BH.MDN ---
Multi-Disciplinary Note Note 30-min Individual: Time Started:: 11:15 Date: 01/18/25 Purpose of session/treatment goals addressed:: To work on goal #1 of pt's tx plan and to review progress with behavioral activation goals. Eye Contact:: Good Motor Activity:: Appropriate Appearance:: Casual Speech:: Appropriate Mood:: Euthymic Affect:: Full Thoughts:: Linear, Logical and No evidence of hallucinations/delusions noted Staff Interventions:: thought challenging, CBT techniques, mindfulness skills, strengths perspective, goal setting and taught coping skills (discussed emotional regulation skills including non-judgmental observation.) Client Response:: Pt responded well to session, open to meeting with therapist. Pt reports feeling pretty good which pt attributes to getting some things accomplished and getting an AC unit which has helped with sleep. Pt shared she is grateful that she has gotten so much help with bills and other stressors. Pt able to give herself credit as she is good at advocating for herself and this is a big reason why she was able to get help. Pt stated she has been enjoying IOP and she feels that she is benefitting from the structure, setting goals, and the support. Pt receptive to working on emotional regulation skills-specially the non-judgmental observation of emotions. Pt reports she is typically good with self-soothing and has learned different mindfulness techniques. Pt and therapist will meet again next week and review homework. Risks/Concerns:: Pt denies any suicidal ideations, plan, or intent. Pt denies any thoughts of . Progress Toward Goals/Plan:: Pt reports doing well and shared she has been functioning a little better at home. Pt accomplished some of her goals including calling places for assistance, cleaning her room a little, and getting an AC unit. Pt stated she is currently worried about hyperfixating on writing and pt hopes this does not lead to avoidance and procrastination. Pt also recognizes that her emotional regulation skills are better, but not where she wants them to be. Pt will continue IOP tx to promote use of healthy coping skills, improve daily functioning, and increase independence. Time Stopped:: 11:31
--- NOTE | 2025-01-21 09:05 | BH.SGPN.GN ---
Behaviors/Verbalizations/Mental Status: [] Eye contact is good. Motor activity is appropriate. Appearance is casual. Speech is Appropriate. Mood is depressed. Affect is congruent. Thoughts are linear and logical. No evidence of psychosis. Reviewed daily check in sheet and no reports of suicidal ideations or intent. Client Response/Progress/Benefit: [] Pt participated when prompted. Attentive. Daily symptom tracker notes /5 for depression. ? I ate proper food?. Elaborated on why this was a mental health win and her struggles with meal preparation. She is also proud of herself for being medication compliant as this has been an issue in the past for her as well. Making small changes and setting small daily goals which has increase purpose. Remains hyperfixated on her writing often finding it difficulty to take breaks. She believes this is a healthy distraction and provides meaning. Progress noted. Benefited from group support, encouragement, and feedback. Will continue in IOP to prevent decompensation, increase healthy coping, and improve functioning. Narrative Note: []
--- NOTE | 2025-01-21 10:10 | BH.SGPN.GN ---
Behaviors/Verbalizations/Mental Status: [] Client alert and oriented, casually dressed and groomed. Eye contact fair. Motor activity appropriate. Speech within normal limits. Affect congruent, mood anxious. Thoughts linear, logical, no signs of hallucinations or delusions. Client Response/Progress/Benefit: [] Pt was an attentive and active participant, AEB taking notes and providing input in group discussion. Attentive during psychoeducation. Pt engaged during interactive discussion in which the group defined self-care and discussed its benefits. Group discussed barriers and benefits to self-care. Identified benefits as being more productive, feeling more grounded, feeling happier, decreased anxiety, better quality of life, and increased resilience. Pt participated in small groups where they worked to identify and challenged common self-care ?myths?. Benefited from increased awareness of self-care, its benefits, and the consequences of not utilizing self-care strategies. Will continue IOP tx to prevent decompensation, improve daily functioning, and challenge distortions.
--- NOTE | 2025-01-21 11:10 | BH.SGPN.GN ---
Behaviors/Verbalizations/Mental Status: []Client alert and oriented, casual appearance. Eye contact good. Motor activity appropriate. Speech within normal limits. Affect congruent, mood dysthymic and anxious. Thoughts linear, logical, no signs of hallucinations or delusions. Client Response/Progress/Benefit: [] Pt engaged participant AEB completing self-assessment worksheet and providing input throughout discussion. Pt completed worksheet identifying current self-care practices and what self-care activities Pt wants to start using. Pt selected spiritual self-care to begin practicing more consistently. Pt plans to do this by spending time in nature and exploring more witchy things. Appeared to benefit from completing the self-care evaluation and gaining insights into current self-care practices, as well as identifying areas in which Pt would like to improve upon. Pt will continue IOP tx to prevent decompensation, maintain mood stability, and increase distress tolerance skills. Narrative Note: []
--- NOTE | 2025-01-24 09:50 | BH.MDN ---
Multi-Disciplinary Note Note 30-min Individual: Time Started:: 09:30 Date: 01/24/25 Purpose of session/treatment goals addressed:: To work on behavioral activation goals to improve depression and motivation levels. Eye Contact:: Good Motor Activity:: Appropriate Appearance:: Casual (pt's clothing appears clean, however, pt reports she is currently only showering once a week at most.) Speech:: Appropriate Mood:: Euthymic Affect:: Full Thoughts:: Linear, Logical and No evidence of hallucinations/delusions noted Staff Interventions:: thought challenging, motivational interviewing, CBT techniques, discharge planning, strengths perspective and goal setting Client Response:: Pt responded well to session, open to meeting with therapist. Pt reports feeling positive today and she shared that she is thinking about getting into running. Pt shared she has wanted to do this in the past and she feels that she could do it, but she wants to work on her breath work first. Pt read that if she gets a kettlebell, there are exercises she can do that will strengthen her lungs. Pt recognizes she gets into boughts of doing things and then pt stops these projects. Discussed things pt can do so she has a higher likelihood of following through including taking walks during sessions and using the kettlebell when she has the most energy in the day instead of waiting until the end of the day. Pt encouraged to remind herself the benefits of moving her body to keep pt motivated and engaged. Pt and therapist also discussed discharge plan and pt shared she is not yet ready to discharge as pt wants to see if I can keep these things up for a little while longer. Risks/Concerns:: Pt denies any suicidal ideation, plan, or intent. Pt denies any thoughts of . Progress Toward Goals/Plan:: Pt continues to respond well to IOP AEB pt's self-report of improved mood and perspective. Pt feels that her energy levels are improving, but she still struggles with accomplishing tasks and her ADLs. Pt wants to get into exercise more which is her goal for the week. Pt will continue IOP tx for 2-3 more weeks to reinforce healthy coping skills and habits and establish aftercare. Time Stopped:: 09:50
--- NOTE | 2025-01-24 10:10 | BH.SGPN.GN ---
Behaviors/Verbalizations/Mental Status: [] Eye contact is good. Motor activity is appropriate. Appearance is casual. Speech is Appropriate. Mood is dysthymic. Affect is congruent. Thoughts are linear and logical. No evidence of psychosis. Client Response/Progress/Benefit: [] Pt was attentive during psychoeducation and participated in group activity. Group discussed what influences a person?s perspective and how perspective can positively or negatively impact mental health treatment. Group identified several factors that can influence perspective which include; mood, current stressors, sleep, health, hunger, and several others.?Pt appeared to benefit from increasing awareness of different perspectives and how they can affect mental health. Pt will continue IOP tx prevent decompensation, stablize mood, increase healthy coping, and improve functioning. Narrative Note: []
--- NOTE | 2025-01-24 11:05 | BH.SGPN.GN ---
Behaviors/Verbalizations/Mental Status: []Pt alert and oriented, casually dressed and groomed. Eye contact good. Motor activity appropriate. Speech within normal limits. Affect congruent, mood calm. Thoughts linear, logical, no signs of hallucinations or delusions. Client Response/Progress/Benefit: [] Pt was attentive and contributed to group discussion. Pt worked with group to identify strategies that can help with challenging negative perspective. Pt stated they can practice looking at positive outcomes to challenge negative perspective. Pt completed strengths exploration worksheet, identifying personal strengths. Pt able to acknowledge how these strengths are helping pt and can continue to help pt in mental health journey. Pt identified wanting to work on utilizing her strength of self-advocacy to keep speaking up for herself and improve her mental health. Benefited from identifying personal strengths and strategies for enhancing use of identified strengths. Pt will continue IOP tx to increase application of healthy coping skills, improve emotional regulation skills, and improve self-care practices. ?? Narrative Note: []
--- NOTE | 2025-01-25 07:57 | PCM.BH.PN ---
Intake Vital Signs 12/25/24 10:32 01/03/25 08:28 01/03/25 09:43 01/25/25 07:57 Height 5 ft 6 in 5 ft 6 in 5 ft 7 in 5 ft 7 in Weight: 284 lb 275 lb BMI 45.8 BP 155/107 H 143/97 H Blood Pressure Location Lt radial Position Sitting Respiration 16 Pulse 106 H 83 Pulse Source Monitor Intake Visit Reasons: follow up Allergies No Known Allergies Allergy (Verified 01/03/25 09:34) Medications ?Medication ?Instructions ?Recorded ?Confirmed ?Type sertraline 50 mg tablet 50 mg PO QDAY #30 tabs 12/25/24 01/03/25 Rx atomoxetine 40 mg capsule 40 mg PO DAILY 01/03/25 01/03/25 History Held on 01/03/25. Instructions: pt states she is going to start taking it again soon levothyroxine 137 mcg tablet 137 mcg PO DAILY 01/03/25 01/03/25 History (Euthyrox) Held on 01/03/25. Instructions: pt states she is going to start taking again soon HPI () History of Present Illness History provided by: patient Chief complaint: depression HPI: Annemarie Alvarez is a 34 year old female who presents today for follow up evaluation. Patient reports that she has been doing very well in recent. Has only been taking sertraline to this point and has found it very helpful. Has not been taking thyroid medication or atomoxetine as she was just focused on being consistent with sertraline as she has been having difficulty with taking meds regular in the past. Sleep has been doing largely well. Has been eating largely well, but does struggle getting food financially. Anxiety and depression are very well controlled for the time being. Is hoping to have her animals designated as an emotional support animal. Review of systems () Constitutional Denies: fever(s), chills, change in weight or fatigue Eyes Denies: change in vision or blurry vision Ears, Nose, Mouth, Throat Denies: throat pain, neck pain or change in hearing Cardiovascular Reports: dyspnea (when anxious); Denies: chest pain or palpitations Respiratory Reports: dyspnea (when anxious); Denies: cough or wheezing Gastrointestinal Denies: abdominal pain, nausea, vomiting, diarrhea or constipation Genitourinary Denies: dysuria or urinary frequency Musculoskeletal Denies: back pain, neck pain, joint pain or muscle weakness Integumentary/Breast Denies: rash or new lesions Neurological Denies: headache(s), dizziness or confusion Endocrine Denies: fatigue or excessive sweating Hematologic/Lymphatic Denies: easy bruising or easy bleeding Allergic/Immunologic Denies: wheezing Exam Mental Status Exam- Psych () Appearance casually dressed and no apparent distress Attitude cooperative and engaged Activity/Motor Behavior fidgeting Speech regular rate and regular volume Mood OK Affect restricted Thought Process linear and logical Thought Content no delusions and no hallucinations Suicidal Ideation none Homicidal Ideation none Attention intact Concentration intact Sensorium/Orientation awake and alert Memory/Cognition intact Insight fair Judgement fair Assessment & Plan () Assessment & Plan (1) Major depressive disorder: Qualifiers: Active/Remission status: currently active Major depression episode severity: moderate Major depression recurrence: recurrent Qualified Code(s): F33.1 - Major depressive disorder, recurrent, moderate Plan: - doing better on zoloft; no significant concerns (2) ADHD: Problem Details: By history Qualifiers: Attention deficit-hyperactivity disorder type: predominantly inattentive Qualified Code(s): F90.0 - Attention-deficit hyperactivity disorder, predominantly inattentive type Plan: - holding atomoxetine; will defer to outpatient provider (3) Hypothyroidism: Plan: - encouraged to start levothyroxine again as prescribed by outpatient provider Medications: On Hold atomoxetine Hold Comment: pt states she is going to start taking it again soon 40 mg PO DAILY levothyroxine Hold Comment: pt states she is going to start taking again soon 137 mcg PO DAILY Charges/Coding Multi Select Codes Behavior Health Behavior Health EST Pt E/M: 21824 Est Pt Level IV
--- NOTE | 2025-01-25 09:05 | BH.SGPN.GN ---
Behaviors/Verbalizations/Mental Status: [] Pt alert and oriented, neatly dressed and groomed. Eye contact good. Motor activity appropriate. Speech within normal limits. Affect congruent, mood euthymic. Thoughts linear, logical, no signs of hallucinations or delusions. Reviewed pt?s symptom tracker, no risk for suicidal ideation, plan, or intent 01/25/25. Client Response/Progress/Benefit: []Pt was an active participant in group discussions. Attentive. Able to identify mental health wins including ?I?m wearing clean clothes and I got my kettle long and I went to bed on time.? Pt noted feeling proud of herself for her wins. Pt's stressor today is ?normal money stuff.? The group offered pt encouragement and emotional support which pt reported was helpful. Pt is feeling cute and light.? this morning. Pt receptive to feedback from peers. Benefited from group support, encouragement, and feedback. Progress noted. Will continue IOP tx to promote use of healthy coping skills and improve ability to complete ADLs. Narrative Note: []
--- NOTE | 2025-01-25 10:15 | BH.SGPN.GN ---
Behaviors/Verbalizations/Mental Status: [] Client alert and oriented, casual appearance. Eye contact good. Motor activity appropriate. Speech within normal limits. Affect congruent, mood euthymic. Thoughts linear, logical, no signs of hallucinations or delusions. Client Response/Progress/Benefit: []Client responded well to session AEB listening attentively to peers, taking notes, and engaging in discussions. Client attentive to psychoeducation about different styles of decision making. Client engaged in discussion about internal and external influences that impact decision making. Group identified internal influences that impact decision making to include self-talk, anxiety, mood, and past experiences. Group identified external influences that impact decision making to include opinions from others, peer pressure, societal or cultural norms, and finances. Client seemed to benefit from increased awareness and understanding of different decision making styles. Plan is for client to continue IOP to improve daily functioning, improve view of self, and prevent decompensation.
--- NOTE | 2025-01-25 11:15 | BH.SGPN.GN ---
Behaviors/Verbalizations/Mental Status: []Pt alert and oriented, casually dressed and groomed. Eye contact good. Motor activity appropriate. Speech within normal limits. Affect congruent, mood content and anxious. Thoughts linear, logical, no signs of hallucinations or delusions. Client Response/Progress/Benefit: [] Pt took notes and contributed to group discussions and was an active participant in activity. Pt engaged in continued discussion on decision making styles and pros and cons of each. Pt actively participated in experiential activity in which the group was given a scenario and prompted to decide what they would do. Did well to actively reflect on the various factors influencing their identified decisions as well. Pt worked with group to then identify several strategies for improving healthy decision making skills. Pt shared wanting to work on improving ability to use verbal processing before making decisions. Pt appeared to benefit from learning about building healthy decision making processes. Will continue IOP tx to improve mood stability, increase confidence, and prevent decompensation. ? Narrative Note: []
--- NOTE | 2025-01-25 15:09 | BH.TPR ---
Treatment Plan Review Demographics Date of Admission:: 12/31/24 Date of Treatment Plan Review:: 01/25/25 Admitting Diagnoses:: F33.1 - Major depressive disorder, recurrent, moderate; F90.0 - Attention-deficit hyperactivity disorder, predominantly inattentive type Current Diagnoses:: F33.1 - Major depressive disorder, recurrent, moderate; F90.0 - Attention-deficit hyperactivity disorder, predominantly inattentive type Patient Status Patient's Response to Treatment:: Pt has responded well to session AEB consistently attending IOP and engaging in both individual and group therapy sessions. Pt consistently completes homework provided from individual counseling. Pt contributes actively during group discussions, takes notes, appears to listen to others, and engages in group activities. Pt's overall DSM-5 scores increased since admission, but pt's scores for anxiety has decreased since admission. Status of Current Problems and Symptoms: Pt's symptoms of anxiety and depression are still impacting pt's functioning, but pt reports she is feeling better than she was when she started IOP. Some domains of the DSM-5 have increased since admission such as issues with pain and memory and depression. Pt's stressors (financial) are ongoing, but pt reports she has been reaching out and getting assistance which has reduced her stress. Pt reports her symptoms of ADHD are impacting her functioning as well. Progress Problem #1: Problem Name:: Depression, hopelessness, low motivation. Status of Goals:: objective 1- in progress. Pt has been working on cleaning her kitchen and taking showers more consistently. Pt recognizes that she is doing better with cooking as well. Pt can continue to work on this goal to improve functioning and confidence more. Objective 2- not complete. Pt's scores for depression have slightly increased since admission. Pt reports this week she is feeling more bright and motivation, but last week she was feeling more depressed. The DSM-5 assesses based on the last two weeks. Team Recommendations:: Team recommends continued goals and objectives to reinforce skills and reduce symptoms. Team recommends pt continue working on combating distortions, engaging in self-care practices, and setting/accomplishing small goals each day. Problem #2: Problem Name:: Anxiety and low distress tolerance. Status of Goals:: Objective 1- complete with ongoing work encouraged. Pt reports she has been managing stress much better AEB pt reported she has been advocating for her needs, reaching out to support, and using healthy coping skills. Objective 2- in progress. Pt's DMS-5 scores for anxiety have decrease by 25% since admission. Pt reports feeling connected when she comes to [facility] and she enjoys the structure which reduces anxiety. Team Recommendations:: Treatment team encourages pt to continue working on distress tolerance skills and advocating for herself.
--- NOTE | 2025-01-29 10:10 | BH.SGPN.GN ---
Behaviors/Verbalizations/Mental Status: [] Eye contact is good. Motor activity is appropriate. Appearance is casual. Speech is Appropriate. Mood is euthymic. Affect is congruent. Thoughts are linear and logical. No evidence of psychosis. Client Response/Progress/Benefit: [] Pt participated at times during group discussions and interactions. Attentive during psychoeducation on automatic negative thoughts (ANTS) and cognitive distortions. This group was very psychoeducation heavy. Pt did participated during interactive discussions in which peers defined and gave examples of ANTS. Participated during interactive discussion on definition of cognitive distortions and examples related to the 10 cognitive distortions presented. Client stated top three distortions she uses are all or nothing thinking, emotional reasoning, and disqualifying the positives. Benefited from increased insight and awareness of cognitive distortions and their impact on emotions and behaviors. Will continue in IOP to promote use of healthy coping skills, improve daily functioning, and prevent decompensation.
--- NOTE | 2025-01-29 11:10 | BH.SGPN.GN ---
Behaviors/Verbalizations/Mental Status: []Pt alert and oriented, casually dressed and groomed. Eye contact good. Motor activity appropriate. Speech within normal limits. Affect congruent, mood euthymic. Thoughts linear, logical, no signs of hallucinations or delusions. Client Response/Progress/Benefit: [] Client responded well to session AEB input and examples during group activity. Group discussed and practiced methods of reframing cognitive distortions. Client participated in identifying cognitive distortions when examples were provided. Client discussed in group the different strategies to overcome the distortions. Client identified connecting with finding evidence against a negative thought as a strategy. Will continue tx to promote use of healthy coping skills, increase distress tolerance skills, and improve self-compassion. Narrative Note: []
--- NOTE | 2025-01-31 09:00 | BH.SGPN.GN ---
Behaviors/Verbalizations/Mental Status: [] ?Eye contact is good. Motor activity is appropriate. Appearance is casual. Speech is Appropriate. Mood is content. Affect is congruent. Thoughts are linear and logical. No evidence of psychosis. Reviewed daily check in sheet and no reports of suicidal ideations or intent. Client Response/Progress/Benefit: [] ?Pt was an active participant in group discussions. Attentive. Did well to identify 2 mental health wins including managing to walk 1/2 a mile and do kettlebells yesterday, explaining that she is trying to be more active. Reports feeling accomplished as a result. Additional win noted as accomplishing self-care tasks of laundry and showering. Stressor noted as ongoing difficulties with managing finances. 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 Progress noted. Benefited from group support, encouragement, and feedback. Will continue in IOP to prevent decompensation, promote mood stability, and increase healthy coping consistency. Narrative Note: []
--- NOTE | 2025-01-31 10:10 | BH.SGPN.GN ---
Behaviors/Verbalizations/Mental Status: [] Client alert and oriented, casually dressed and groomed. Eye contact good. Motor activity appropriate. Speech within normal limits. Affect congruent, mood euthymic. Thoughts linear, logical, no signs of hallucinations or delusions. Client Response/Progress/Benefit: []Client responded well to session, contributing to discussion and engaged during the activity. Group identified the benefits of change which included: increased confidence, progressing towards goals, and improving mental and physical health. Worked with the group to identify barriers to change, which included: uncomfortable emotions such as anxiety, lack of energy, lack of supports, and negative influences. Client participated along with group in activity where they identified and discussed the emotions related to change. Client shared that avoidance has kept them from making changes. Benefited from increased awareness and understanding of emotions, benefits, and barriers related to change. Will continue IOP tx to increase functioning and prevent decompensation. Narrative Note: []
--- NOTE | 2025-01-31 11:10 | BH.SGPN.GN ---
Behaviors/Verbalizations/Mental Status: [] Client alert and oriented, casually dressed and groomed. Eye contact good. Motor activity appropriate. Speech within normal limits. Affect congruent, mood euthymic. Thoughts linear, logical, no signs of hallucinations or delusions Client Response/Progress/Benefit: [] Client responded well to session, attentive. Did well to process activity and work with group to relate the strategies used to overcome barriers in the activity to managing change in own life. Client identified a change they would like to make is having overall better health. Client identified currently being in action stage for this particular change. Client stated goal is to eat healthier and exercise daily. Appeared to benefit from identifying a small goal to work towards. Client will continue IOP tx to prevent decompensation, gain healthy coping skills, and improve daily functioning. Narrative Note: []
== END 2025-01-31 23:59 ==
LOC: BHIOP 07:19
PROVIDERS: PCP Student in an Organized Health Care Education/Training Program; Referring Provider Internal Medicine; Visit Provider Internal Medicine
DX: F33.1 Major depressive disorder, recurrent, moderate (principal); F90.0 Attention-deficit hyperactivity disorder, predominantly inattentive type
CPT/HCPCS: H2012; H2020; S9480; 90832; 90834

== ENCOUNTER 2025-02-01 07:50 | Outpatient (RCR) | payer MEDICAID, SELFPAY ==
--- NOTE | 2025-02-04 10:10 | BH.SGPN.GN ---
Behaviors/Verbalizations/Mental Status: []Eye contact is good. Motor activity is appropriate. Appearance is casual. Speech is Appropriate. Mood is anxious. Affect is congruent. Thoughts are linear and logical. No evidence of psychosis. Client Response/Progress/Benefit: []Pt was an active participant in group discussions. Attentive during psychoeducation on the 4 communication styles (Passive, Passive-Aggressive, Aggressive, and Assertive) and the obstacles to effective communication. Contributed during interactive discussion on the benefits of communicating effectively. Worked well with peers to identify the benefits and disadvantages to the different communication styles. Pt believes that she is primarily passive and can become passive-aggressive when feels needs are not met. Benefited from increased understanding of communication styles and how these can impact effective communication. Will continue in IOP to increase healthy coping skills, challenge negative thoughts, and prevent decompensation. Narrative Note: []
--- NOTE | 2025-02-04 11:15 | BH.SGPN.GN ---
Behaviors/Verbalizations/Mental Status: []Pt alert and oriented, casually dressed and groomed. Eye contact good. Motor activity restless. Speech within normal limits. Affect congruent, mood engaged. Thoughts linear, logical, no signs of hallucinations or delusions. Client Response/Progress/Benefit: [] Pt responded well to session AEB Pt listening attentively to others and providing input during group discussion on the pay offs and costs of the different communication styles. Pt able to connect how current communication style impacts mental health. Connected with peers? comments about the importance of using assertive communication. Pt seemed to benefit from increasing awareness of healthy strategies to improve communication and worked with peers during the experiential activity to practice assertive communication. Pt reported wanting to work on ?expressing my thoughts and feelings calmly.? Will continue IOP tx to promote use of healthy coping skills, increase distress tolerance skills, and improve daily functioning. ? Narrative Note: []
--- NOTE | 2025-02-05 09:00 | BH.SGPN.GN ---
Behaviors/Verbalizations/Mental Status: [] Pt alert and oriented, casually dressed and groomed. Eye contact good. Motor activity appropriate. Speech within normal limits. Affect congruent, mood euthymic. Thoughts linear, logical, no signs of hallucinations or delusions. Reviewed pt?s symptom tracker, no risk for suicidal ideation, plan, or intent 02/05/25. Client Response/Progress/Benefit: []Pt was an active participant in group discussions. Attentive. Able to identify mental health wins including ?I made some money yesterday and I?m getting out of the house more.? Pt's stressor today is ?money is still a stressor, but I?m not panicking like I was before.? The group offered pt encouragement and emotional support which pt reported was helpful. Pt is feeling content? this morning. Pt receptive to feedback from peers. Progress noted. Benefited from group support, encouragement, and feedback. Will continue IOP tx to promote use of healthy coping skills, improve daily functioning, and increase self-care. Narrative Note: []
--- NOTE | 2025-02-05 10:00 | BH.SGPN.GN ---
Behaviors/Verbalizations/Mental Status: [] Eye contact is good. Motor activity is appropriate. Appearance is casual. Speech is Appropriate. Mood is euthymic. Affect is full. Thoughts are linear and logical. No evidence of psychosis. Client Response/Progress/Benefit: [] Pt responded well to session, attentive and engaged. Group participated in the discussion defining stigma as well as what stigma has kept pt's from doing in their lives. Pt stated mental health stigma often leads to burnout for her. She describes pushing herself more than she should as she doesn't want to be perceived differently due to her mental health. Pt worked with peers to begin discussion of what reinforces stigma, both socially and internally, and this was discussed further in the next group. Pt appeared to benefit from learning about the different types of stigma as well as gaining awareness of how stigma has personally impacted pt. Will continue in IOP to prevent decompensation, increase healthy coping, and improve functioning. Narrative Note: []
--- NOTE | 2025-02-05 15:26 | BH.MDN ---
Multi-Disciplinary Note Note 45-min Individual: Time Started:: 11:25 Date: 02/05/25 Purpose of session/treatment goals addressed:: To address current stressors and discuss strategies to help cope with these stressors. Another goal was discussing discharge. Eye Contact:: Good Motor Activity:: Appropriate Appearance:: Casual Speech:: Appropriate Mood:: Euthymic Affect:: Congruent Thoughts:: Linear, Logical and No evidence of hallucinations/delusions noted Staff Interventions:: thought challenging, CBT techniques, mindfulness skills, discharge planning, strengths perspective and other (maintenance plan work and started session with a walk.) Client Response:: Pt responded well to session, open to meeting with therapist and was receptive to walking. Pt shared last session that she has been wanting to get back into exercise and she stated she would be open to walking during therapy. Pt shared since last session she has bought and used her kettlebell and she has gone on several walks. Pt reports she is noticing an improved mood and sense of accomplishment when she gets outside and walks. Pt does feel sore and pt shared she hopes this does not keep her from being consistent. Pt receptive to working on a maintenance plan and we started with self-care that pt can do daily, 1-2 times a week, and occasionally. Pt first identified things she is already doing that she wants to keep up with such as eating/drinking, taking meds, walking, and going to therapy. Pt noted that she also is consistent with grocery shopping and going to the food bank. Pt wants to be more consistent with hygiene including showering and brushing her teeth. Pt identified barriers to doing these things more consistently and pt shared her bathroom is messy. Pt shared realistically it would take her a few minutes to clean the sink and this would help pt brush her teeth. Also talked about taking out the trash every week instead of once a month as a way to maintain chores and not feel as overwhelmed. Pt is to work on the rest of the maintenance plan for homework. Risks/Concerns:: Pt denies any suicidal ideation, plan, or intent. Pt denies any thoughts of . Progress Toward Goals/Plan:: Pt continues to respond well to IOP tx. Pt stated her mood continues to be more stable and she is feeling more confident in managing stressors. Pt is still anxious about leaving IOP and was receptive to working on a maintenance plan to help build routine and structure. Pt will continue IOP tx for one more week to reinforce healthy coping skills and increase self-confidence. Time Stopped:: 12:05
--- NOTE | 2025-02-07 09:02 | BH.SGPN.GN ---
Behaviors/Verbalizations/Mental Status: [] Client alert and oriented, casual appearance. Eye contact good. Motor activity appropriate. Speech within normal limits. Affect congruent, mood euthymic and positive. Thoughts linear, logical, no signs of hallucinations or delusions. Reviewed client's symptom tracker, no risk for suicidal ideation, plan, or intent. Client Response/Progress/Benefit: [] Client responded well to session AEB listening to others and sharing thoughts/feelings. Reportedly symptom tracker client scored a 0 out of 5 for depression and a 1 out of 5 for anxiety. Client identified mental positive as walking to therapy yesterday which is something new she has been wanting to work on being more active. Client noted additional mental positive as making up on time this morning and staying awake instead of falling back asleep. Client noted continued stressor is her final status. Identified current emotion is energized. Appeared to benefit from support from peers. Will continue IOP tx to promote healthy coping skills, continue to challenge negative thought patterns, and prevent decompensation. Narrative Note: []
--- NOTE | 2025-02-07 10:15 | BH.SGPN.GN ---
Behaviors/Verbalizations/Mental Status: []Client alert and oriented, disheveled appearance. Eye contact good. Motor activity appropriate. Speech within normal limits. Affect congruent, mood euthymic. Thoughts linear, logical, no signs of hallucinations or delusions. Client Response/Progress/Benefit: [] Pt was an active participant AEB taking notes and engaging in group activity. Connected with the topic of pitfalls and listened to group discussion on barriers that prevent from choosing a healthier path to mental wellness. Group worked together to identify examples of personal pitfalls. These examples included; shutting down, not asking for help, negative thinking patterns, avoidance, and isolation. Pt benefited from group as Pt learned to better identify potential barriers to improving mental health symptoms. Identified personal barrier of lack of motivation and avoidance. Pt will continue IOP tx to promote use of healthy coping skills and establish aftercare. Narrative Note: []
--- NOTE | 2025-02-07 11:15 | BH.SGPN.GN ---
Behaviors/Verbalizations/Mental Status: []Client alert and oriented, casually dressed and groomed. Eye contact good. Motor activity appropriate. Speech within normal limits. Affect congruent, mood content. Thoughts linear, logical, no signs of hallucinations or delusions. Client Response/Progress/Benefit: [] Pt receptive of session, engaged throughout AEB Pt actively listening and contributing to discussion as well as taking notes.? Pt participated in the experiential activity and did well to communicate ideas with peers and manage emotions. Pt attentive as group processed how the emotions and perspective of the group impacted the activity. Pt admitted that she wanted to quit when impatient, but pt was able to complete the activity with peers. Group worked together to identify different coping skills to help manage pitfalls. Pt identified a pitfall they struggle with as ?impatience?. Pt plans to work on their pitfall by finding ways to make the task enjoyable. Benefited from identifying personal pitfalls and strategies to overcome these pitfalls. Pt will continue IOP tx to prevent decompensation, improve daily functioning, and increase distress tolerance. ? Narrative Note: []
--- NOTE | 2025-02-11 10:05 | BH.SGPN.GN ---
Behaviors/Verbalizations/Mental Status: []Pt alert and oriented, disheveled appearance. Eye contact good. Motor activity appropriate. Speech within normal limits. Affect congruent, mood euthymic. Thoughts linear, logical, no signs of hallucinations or delusions. Client Response/Progress/Benefit: [] Pt receptive to session AEB contributing to group discussion, as well as listening attentively to others, and taking notes. Worked with group to brainstorm the positive and negative aspects of stress on physical and mental health as well as the impact of distress on performance, relationships, and mental health. Pt shared their current personal top stressors to be: car care, house cleanliness, and money. Shared when feeling overwhelmed with stress pt tends to avoid and ?bed rot.? Benefited from increased awareness of positive and negative stress as well as how stress impact individuals. Will continue IOP tx to reinforce healthy coping skills, improve daily functioning, and establish aftercare. ?? Narrative Note: []
--- NOTE | 2025-02-11 11:10 | BH.SGPN.GN ---
Behaviors/Verbalizations/Mental Status: []Eye contact is good. Motor activity is appropriate. Appearance is casual. Speech is Appropriate. Mood is euthymic. Affect is congruent. Thoughts are linear and logical. No evidence of psychosis. Client Response/Progress/Benefit: [] Pt was an attentive participant in group discussions and actively engaged during experiential activity, doing well to regulate their emotions throughout the activity and work with peers. Attentive during psychoeducation on the 4 A's (Avoid, adapt, alter, accept) of coping with stress. Shared that they would benefit most from practicing adapting perspective by looking at the mora to challenge her black and white thinking. Was able to identify the connection between the experiential activity and utilization of stress management skills. Benefited from increased awareness of stress management strategies. Pt will continue IOP to promote healthy coping skills, challenge negative thoughts, and prevent decompensation.
--- NOTE | 2025-02-11 13:42 | BH.MDN ---
Multi-Disciplinary Note Note 30-min Individual: Time Started:: :25 Date: 02/11/25 Purpose of session/treatment goals addressed:: To address current stressors and discuss strategies to help cope with these stressors. Another goal was discussing discharge. Eye Contact:: Good Motor Activity:: Appropriate Appearance:: Disheveled (unkempt and reports she has not showered recently. This appears to be pt's baseline and not an indicator of decompensating mental health.) Speech:: Appropriate Mood:: Euthymic Affect:: Full Thoughts:: Linear, Logical and No evidence of hallucinations/delusions noted Staff Interventions:: thought challenging, CBT techniques, discharge planning, strengths perspective and other (finished maintenance plan.) Client Response:: P responded well to session, open to meeting with therapist. Pt reports feeling a little scattered today because it's Tuesday but overall pt continues to report doing better. Pt shared she was able to problem-solve a stressor this weekend and she got to go grocery shopping. Pt noted that she has been managing stressors so much better than when pt started IOP. Pt stated her stressors really have not changed- pt still is applying for disability, still has financial stressor, etc- but pt feels she is using her coping skills and these stressors are less impactful. Pt and therapist finished pt's maintenance plan which included a plan for when anxiety and stress. Pt's triggers included; disability rejection, ADLs, money, and maintaining relationships/wellness. Warning signs included not enjoying hobbies, wanting to isolate more, and being more all or nothing. Pt's coping skills included; writing, talking to her sister, walking, challenging her thoughts, and taking her meds. Risks/Concerns:: Pt denies any suicidal ideation, plan, or intent. Pt denies any thoughts of . Progress Toward Goals/Plan:: Pt has made progress while in IOP and has accomplished her tx goals. Pt will discharge at the end of the week, but she can benefit from finishing out the week to reinforce healthy coping skills and establish outpatient appointments. Time Stopped:: 09:53
--- NOTE | 2025-02-11 13:45 | BH.AFTERPLAN ---
Aftercare Plan Demographics Treatment End Date:: 02/15/25 Psychiatrist:: Roque Tobin Psychiatrist Office #:: [phone] [facility]IOP Therapist:: Ariana Chavarria Therapist Phone #:: [phone] Medications Home Medications atomoxetine 40 mg capsule 40 mg PO DAILY 01/03/25 Held on 01/03/25. Instructions: pt states she is going to start taking it again soon levothyroxine 137 mcg tablet (Euthyrox) 137 mcg PO DAILY 01/03/25 Held on 01/03/25. Instructions: pt states she is going to start taking again soon sertraline 50 mg tablet 50 mg PO QDAY #90 tabs 02/01/25 Plan Details Progress/Aftercare Plan Details:: Pt has responded well to treatment as evidenced by Pt consistently attending IOP sessions and her reduction of DSM-5 scores since admission. Pt was always attentive and receptive to learning during group and individual sessions. Pt actively applied coping skills outside of IOP and reports overall her mood is improved and she is functioning better than she was several months ago. Pt?s overall symptom reduction is 53% since admission with anger decreasing by 100%, depression decreasing by 75%, and anxiety decreasing by 63%. Pt has increased self-compassion and become more assertive with her needs. Most importantly, Pt has become more of an advocate for herself and confident in her abilities. Pt will follow up with Quyen Steele for medication management and Mick at [facility] for individual therapy. Strategies for Success:: 1. Opposite action! Continue to break that cycle of anxiety, guilt, and depression by not letting emotions be the only drivers of your bus. 2. Remember that thoughts are thoughts NOT facts! You have power in if you give thoughts the time of day or not. 3. self-care! You deserve to take time for you and you also deserve to face the not so fun self-care like delegating tasks and advocating for yourself 4. Self-compassion! You are human and you will make a mistake?BUT that doesn?t mean you are a failure or not good enough. Remember there are no bad parts! 5. Continue to practice acceptance 6. Practice positive self-talk and keep track of your wins. 7. Remember progress isn?t linear! You may have a setback or bump in the road, but that doesn?t mean you?ve lost all progress. 8. self-reflection and self-awareness. 9. Be understanding with yourself and try to see the whole picture, not just the snapshot. 10. Live in the gomez!! Appointments Appointments/Referrals to Other Services:: 1. Continue with Quyen Steele for psychiatry next appointment is in March 2. Continue with Mick at [facility]. 3. IOP aftercare group starting on 02/21/25 from 2:00-3:30pm
--- NOTE | 2025-02-14 10:05 | BH.SGPN.GN ---
Behaviors/Verbalizations/Mental Status: [] Eye contact is good. Motor activity is appropriate. Appearance is casual. Speech is Appropriate. Mood is anxious. Affect is congruent. Thoughts are linear and logical. No evidence of psychosis. Client Response/Progress/Benefit: [] Client responded well to session, contributing to discussion and engaged during the activity. Attentive during interactive discussions and psychoeducation. Group identified the benefits of change as well as common emotions associated with change. Group identified several emotions associated with change (anxious, excited, overwhelmed, discouraged, torn, embarrassed, exhausted, cautious, and guilty) and discussed how these emotions can be both positive (motivate one to change) and also be an obstacle to change. Benefited from increased awareness and understanding of emotions, benefits, and barriers related to change. Will continue IOP to prevent decompensation, stabilize mood, and improve functioning. Narrative Note: []
--- NOTE | 2025-02-14 11:15 | BH.SGPN.GN ---
Behaviors/Verbalizations/Mental Status: []Client alert and oriented, casually dressed and groomed. Eye contact good. Motor activity appropriate. Speech within normal limits. Affect congruent, mood euthymic. Thoughts linear, logical, no signs of hallucinations or delusions Client Response/Progress/Benefit: [] Pt responded well to session, attentive. Did well to process activity and work with group to relate the strategies used to overcome barriers in the activity to managing change in own life. Pt identified a change they would like to make is ?give myself more credit and be prepared.? Pt identified currently being in maintenance stage for this change. Pt stated goal is to ?write out what I want to talk about in therapy each week?. Appeared to benefit from identifying a small goal to work towards. Pt will continue IOP tx to promote mood stability and reinforce healthy coping skills. ? Narrative Note: []
--- NOTE | 2025-02-15 09:00 | BH.SGPN.GN ---
Behaviors/Verbalizations/Mental Status: [] Client alert and oriented, casual appearance. Eye contact good. Motor activity appropriate. Speech within normal limits. Affect congruent, mood happy and positive. Thoughts linear, logical, no signs of hallucinations or delusions. Reviewed client's symptom tracker, no risk for suicidal ideation, plan, or intent. Client Response/Progress/Benefit: [] Client responded well to session AEB listening to others and sharing thoughts/feelings. Client reported mental positive as getting to [facility] is spreading despite challenges with her car and had to walk 2 miles to her sisters in order to get a ride to [facility] this morning. Client noted additional mental positive as graduating from [facility] today. Client stated she can see significant progress especially in regards to handling daily stressors more effectively compared to when she first started to the program. Client stated current stressor is her apartment landlord is wanting to inspect her apartment and she is worried that means he is going to sell the apartment complex. Client identified current emotion to be accomplished. Appeared to benefit from support from peers. Client will discharge from [facility] today. Narrative Note: []
--- NOTE | 2025-02-15 09:25 | BH.DS_ITS ---
Discharge Summary Demographics Date of Admission:: 12/31/24 Discharge Date: 02/15/25 Presenting Problems at Admission:: Pt is a 34-year-old female with a history of MDD, ADHD, and HOWARD. Pt was referred to [facility] by her outpatient school psychometrist due to worsening mental health symptoms impacting her daily functioning. Pt reports meltdowns including crying uncontrollably, shaking, and brain fog that has hindered pt's ability to work and has led to pt getting fired from jobs. Pt endorses erratic motivation, increased appetite, isolation, avoidance, and feelings of being worthless. Pt is not currently benefitting from weekly counseling alone. Discharge Diagnoses:: F33.1 - Major depressive disorder, recurrent, moderate; F90.0 - Attention-deficit hyperactivity disorder, predominantly inattentive type Reason for Discharge:: Pt has accomplished her tx goals AEB her reduction of DMS-5 symptoms, her self-report of improved functioning and mood, and improved outlook. Pt no longer meets criteria for [facility] level of care and will discharge to outpatient counseling. Treatment Progress During Treatment & Response: Pt has responded well to treatment as evidenced by Pt consistently attending IOP sessions and her reduction of DSM-5 scores since admission. Pt was always attentive and receptive to learning during group and individual sessions. Pt actively applied coping skills outside of IOP and reports overall her mood is improved and she is functioning better than she was several months ago. Pt?s overall symptom reduction is 53% since admission with anger decreasing by 100%, depression decreasing by 75%, and anxiety decreasing by 63%. Pt has increased self-compassion and become more assertive with her needs. Most importantly, Pt has become more of an advocate for herself and confident in her abilities. Pt will follow up with Quyen Steele for medication management and Mick at [facility] for individual therapy. Issues Still to be Addressed:: Pt can benefit from continuing to work on managing her ADHD to improve pt's ability to complete her ADLs. Pt wants to improve her hygiene routine and improve her cleaning routine. Pt can also benefit from ongoing work in self-confidence and distress tolerance. Pt has done well in IOP and is very receptive to homework. Discharge Recommendations/Instructions:: Pt is recommended to continue seeing her outpatient mental health providers to ensure mood stability and wellbeing. Pt sees Quyen Steele at [facility] for medication management and she has an appointment on 03/22/25. Pt has a counselor, Mick, that she sees every Tuesday at [facility]. Pt will also begin IOP aftercare starting on 02/21/25. Discharge Handout
--- NOTE | 2025-02-15 10:00 | BH.SGPN.GN ---
Behaviors/Verbalizations/Mental Status: []Pt alert and oriented, casually dressed and groomed. Eye contact good. Motor activity appropriate. Speech within normal limits. Affect congruent, mood euthymic. Thoughts linear, logical, no signs of hallucinations or delusions. Client Response/Progress/Benefit: [] Pt was an active participant in group discussions. Attentive during psychoeducation on the CBT [place] (Thoughts, Behaviors, Emotions). Engaged in group discussion on how thoughts and behaviors can contribute to maintaining adverse feelings, such as depression, anxiety, and irritability. Completed worksheet in which pt identified obstacles and/or thoughts that are keeping them stuck. Shared obstacles that included telling herself ?I can?t handle things.? Pt benefited from increased awareness of the basis of CBT therapy as well as specific thoughts that are impacting pt's progress. Will discharge from IOP tx as pt has accomplished her tx goals and no longer meets criteria for IOP level of care. ? Narrative Note: []
--- NOTE | 2025-02-15 11:00 | BH.SGPN.GN ---
Behaviors/Verbalizations/Mental Status: []Pt alert and oriented, casually dressed and groomed. Eye contact good. Motor activity appropriate. Speech within normal limits. Affect congruent, mood anxious. Thoughts linear, logical, no signs of hallucinations or delusions. Client Response/Progress/Benefit: [] Pt responded well to session, contributing to discussion and attentive throughout. Pt identified a negative thought that has kept them stuck. Pt's thought was This is too hard for me?. Pt reported when they think this way, pt isolates, gives up, or shuts down. Pt worked to reframe the thought by finding more rational, realistic ways to look at the thoughts and then processed them within group setting. Pt reframed the thought to ?I may be hard but I have the skills to do it?. Pt appeared to benefit from practicing challenging negative thinking with peers and gaining coping skills. Pt will continue IOP tx to promote mood stability, increase thought challenging, and further increase self-compassion. Narrative Note: []
== END 2025-02-18 09:05 | disposition home or self-care (01) ==
LOC: BHIOP 07:50
PROVIDERS: PCP Student in an Organized Health Care Education/Training Program; Referring Provider Internal Medicine; Visit Provider Internal Medicine
DX: F33.1 Major depressive disorder, recurrent, moderate (principal); F90.0 Attention-deficit hyperactivity disorder, predominantly inattentive type
CPT/HCPCS: H2012; H2020; S9480; 90832; 90834

== ENCOUNTER 2025-02-28 11:32 | Outpatient (RCR) | payer MEDICAID, SELFPAY ==
--- NOTE | 2025-02-28 14:00 | BH.COMM ---
Communication Note Communication with Client Communication Note: Patient completed IOP and presents today to start relapse prevention group which meets once weekly (1.5 hours) for 8 weeks. Case discussed with Dr. Tobin with plan to admit with dx of F33.1
--- NOTE | 2025-02-28 14:00 | BH.SGPN.GN ---
Behaviors/Verbalizations/Mental Status: []Pt alert and oriented, casually dressed and appropriately groomed. Eye contact good. Motor activity appropriate. Speech within normal limits. Affect congruent, mood euthymic. Thoughts linear, logical, no signs of hallucinations or delusions. Client Response/Progress/Benefit: []Client active participant in group session AEB providing contributions to group discussion and with intent to meet others. Client reported she has been following through with seeing her counselor and medication provider. Client stated overall since discharge from IOP she has been doing better with trying to keep up with cleaning her apartment, engaging in self-care, eating better, and walking. Client attentive to psychoeducation about gratitude and provided contributions throughout. Client created gratitude plan for the week. Client seemed to benefit from learning about gratitude and creating a week gratitude plan. Pt to continue IOP to promote utilization of healthy coping skills, maintain utilization of coping skills and prevent decompensation.
--- NOTE | 2025-02-28 16:12 | BH.MTP_ITS ---
Master Treatment Plan Patient Information Program Physician:: Dr. Tobin Primary Therapist:: Isa Diaz [facility] Psychiatric Diagnoses Psychiatric Diagnoses:: F33.1 - Major depressive disorder, recurrent, moderate; F90.0 - Attention-deficit hyperactivity disorder, predominantly inattentive type Diagnosis Code(s):: F33.1 Estimated LOS Estimated LOS (in weeks):: 8 Problem/Goal #1 Problem/Goal #1 Stated Goal:: client will maintain or see a reduction in symptoms AEB client score on the DSM 5 cross-cutting measure and improve client's daily functioning. Objectives Objective #1: Stated Objective: Client will continue to consistently apply healthy coping skills to maintain progress made in IOP tx. Interventions: Through group therapy, client will review warning signs and triggers as well as healthy coping skills learned in IOP tx to successfully maintain gains while transitioning into outpatient therapy. Discharge Criteria: Client will have accomplished this goal when client's score on the DSM-5 cross-cutting measure has maintained or reduced over a 8 week period. Target Date: 04/25/25 Review Date: 03/28/25 Objective #2: Stated Objective: Client will learn and utilize 2-3 maintenance strategies to prevent decompensation from original IOP DSM-5 scores. Interventions: Through group therapy, client will be provided with education on healthy maintenance behaviors, relapse prevention techniques, and healthy coping strategies. Discharge Criteria: Client will have accomplished this goal when can report using at least 2 maintenance skills to prevent decompensation compared to original IOP DSM-5 scores Target Date: 04/25/25 Review Date: 03/28/25
== END 2025-03-03 23:59 ==
LOC: BHOG 11:32
PROVIDERS: PCP Student in an Organized Health Care Education/Training Program; Referring Provider Student in an Organized Health Care Education/Training Program; Visit Provider Student in an Organized Health Care Education/Training Program
DX: F33.1 Major depressive disorder, recurrent, moderate (principal)
CPT/HCPCS: 90853

== ENCOUNTER 2025-03-05 07:21 | Outpatient (RCR) | payer MEDICAID, SELFPAY ==
--- NOTE | 2025-03-07 14:00 | BH.SGPN.GN ---
Behaviors/Verbalizations/Mental Status: []Pt alert and oriented, casually dressed and groomed. Eye contact good. Motor activity appropriate. Speech within normal limits. Affect congruent, mood content. Thoughts linear, logical, no signs of hallucinations or delusions. Client Response/Progress/Benefit: []Pt responded well to session AEB sharing and listening attentively to others. Pt has scheduled outpatient mental health appointments for weekly counseling and regular med management. Pt reports using skills of opposite action, walking, and positive self-talk to maintain mood stability. Pt participated in group discussion defining affirmations and why they are important. Pt provided insight throughout clinician?s presentation of tips for writing personal affirmations and wrote their own affirmations, including ?I am vocal about my needs and know how to care for myself? and ?I have the skills to work through the hard times?. Pt appeared to benefit from increased knowledge of affirmation writing skills and creating their own affirmation statements to remind themselves of outside tx environment. Will continue aftercare tx to promote consistent mental health maintenance and prevent decompensation. Narrative Note: []
--- NOTE | 2025-03-14 14:00 | BH.SGPN.GN ---
Behaviors/Verbalizations/Mental Status: []Pt alert and oriented, casually dressed and groomed. Eye contact good. Motor activity appropriate. Speech within normal limits. Affect congruent, mood euthymic. Thoughts linear, logical, no signs of hallucinations or delusions. Client Response/Progress/Benefit: [] Pt receptive of session, engaged throughout. Pt has met with her outpatient therapist this week, but not her psych provider. Pt has been taking medications consistently and reports utilizing healthy coping skills outside of aftercare. These skills included: radical acceptance, self-care, taking breaks, reframing thoughts, and affirmations. ?Receptive of discussion on sitting with the uncomfortable and emotional urges. Pt contributed to the discussion of distress tolerance and how building distress tolerance can help improve mood stability and resilience. Pt wants to keep building distress tolerance by facing her anxiety and filling out paperwork she has been avoiding. Pt seemed to benefit from support from peers and increasing understanding of distress tolerance. Will continue aftercare to reinforce healthy coping skills and improve daily functioning. Narrative Note: []
--- NOTE | 2025-03-21 14:00 | BH.SGPN.GN ---
Behaviors/Verbalizations/Mental Status: []Client alert and oriented, casually dressed and groomed. Eye contact good. Motor activity appropriate. Speech within normal limits. Affect congruent, mood euthymic. Thoughts linear, logical, no signs of hallucinations or delusions. Client Response/Progress/Benefit: []Pt responded well to session AEB sharing and listening attentively to others. Pt reports following up with therapy and pt reports she is taking her medications consistently. Pt stated using sitting with discomfort, asking for help, deep breathing, self-care, and opposite action as primary coping skills used this past week. Pt participated in group discussion defining vulnerability, how and why we avoid it, and the benefits. Pt was an active participant and provided personal examples of being vulnerable and the positive things that came with this. Pt stated that pt would like to work on being vulnerable this week by writing on discord in her game. Will continue aftercare treatment to reinforce healthy coping skills and promote gains. Narrative Note: []
--- NOTE | 2025-03-21 15:56 | BH.TPR ---
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 Pt's symptoms are still 63% lower than they were at IOP admission. Status of Current Problems and Symptoms: Pt reports some ongoing symptoms of anxiety and depression that mildly impact her life and functioning, but not significantly enough for a higher level of care. Pt reports she continues to work on keeping up with healthy habits like walking, self-hygiene, and cleaning. Pt has recently had some family stressors, but pt reports these are resolving too. Progress Problem #1: Problem Name:: Pt will maintain or see a reduction in sx Status of Goals:: Obj 1 - Complete with maintenance encouraged. Pt's depression decreased by 25% compared to IOP admission and anxiety has decreased by 63% compared to IOP admission. Obj 2 - complete with ongoing work encouraged. Pt had been reporting using opposite action, self-compassion, going for walks, and keeping up with cleaning her apartment. Team Recommendations:: Recommended client continue IOP aftercare group in addition to attending regular outpatient counseling in order to maintain gains. Pt also recommended to continue working on self-compassion, practice self-care, and setting realistic goals.
== END 2025-04-02 23:59 ==
LOC: BHOG 07:21
PROVIDERS: PCP Student in an Organized Health Care Education/Training Program; Referring Provider Student in an Organized Health Care Education/Training Program; Visit Provider Student in an Organized Health Care Education/Training Program
DX: F33.1 Major depressive disorder, recurrent, moderate (principal); F90.0 Attention-deficit hyperactivity disorder, predominantly inattentive type
CPT/HCPCS: 90853

== ENCOUNTER 2025-04-03 08:01 | Outpatient (RCR) | payer MEDICAID, SELFPAY ==
--- NOTE | 2025-04-25 16:01 | BH.DS ---
Discharge Summary Demographics Date of Admission:: 02/28/25 Discharge Date: 04/25/25 Presenting Problems at Admission:: Pt admitted to [facility] level of care due depression, ADD, and anxiety symptoms hindering pt's ability to function at her baseline. Pt was admitted to [facility] aftercare to maintain gains made in IOP tx, further reduce symptoms, and improve distress tolerance. 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 Treatment Progress During Treatment & Response: Pt responded well to treatment AEB pt's consistent attendance, ongoing attentiveness and engagement in group discussions, and continued reporting use of skills outside treatment environment. Pt's symptoms are 68% lower than they were at IOP admission per the DSM-5. Pt's anxiety is 88% lower and depression is 75% lower than at IOP admission. Pt has been able to maintain consistent progress for an additional 8 weeks following IOP tx. Issues Still to be Addressed:: Pt can benefit from continuing to work on managing her ADHD to improve pt's ability to complete her ADLs. Pt wants to improve her hygiene routine and improve her cleaning routine. Pt can also benefit from ongoing work in self-confidence and distress tolerance. Pt has done well in [facility] and is very receptive to homework. Discharge Recommendations/Instructions:: Pt is recommended to continue seeing her outpatient mental health providers to ensure mood stability and wellbeing. Pt sees Quyen Steele at [facility] for medication management and pt has a counselor, Mick, that she sees every Tuesday at [facility]. Discharge Handout
== END 2025-04-26 07:24 | disposition home or self-care (01) ==
LOC: BHOG 08:01
PROVIDERS: PCP Student in an Organized Health Care Education/Training Program; Referring Provider Student in an Organized Health Care Education/Training Program; Visit Provider Student in an Organized Health Care Education/Training Program
DX: F33.1 Major depressive disorder, recurrent, moderate (principal); F90.0 Attention-deficit hyperactivity disorder, predominantly inattentive type
CPT/HCPCS: 90853